=== PATIENT | male | born 1975 | race Caucasian/White ===

== ENCOUNTER 2018-07-14 23:19 | Emergency (ER) | payer MEDICAID, MEDICARE ==
[2018-07-14 23:55] VITALS: BP 143/99
--- NOTE | 2018-07-14 23:58 | EDM.PDOC ---
ED HPI GENERAL MEDICAL PROBLEM - General Chief Complaint: ENT Problem Stated Complaint: INFECTION Time Seen by Provider: 07/14/18 23:45 Source of Information: Reports: Patient History Limitations: Reports: No Limitations - History of Present Illness INITIAL COMMENTS - FREE TEXT/NARRATIVE: 43-year-old female with a swollen tender area on the left mandible, started penicillin 3 days ago but it's worsening and building comfortable pressure. No fevers or chills. Just as he was registering to be seen, the abscess ruptured and drained and he feels markedly better. Onset: Gradual Improves with: Reports: Other (Marked improvement now that it is draining) dental pain Pain Score (Numeric/FACES): 9 - Related Data Allergies Allergy/AdvReac Type Severity Reaction Status Date / Time No Known Allergies Allergy Verified 07/14/18 23:36 Home Meds: Home Meds Cyclobenzaprine [Flexeril] 10 mg PO DAILY 04/07/16 [History] Gabapentin 600 mg PO ASDIRECTED 04/07/16 [History] Past Medical History Musculoskeletal History: Reports: Back Pain, Chronic, Fracture - Infectious Disease History Infectious Disease History: Reports: Chicken Pox - Past Surgical History Neurological Surgical History: Reports: Discectomy, Spinal Fusion Musculoskeletal Surgical History: Reports: Other (See Below) Other Musculoskeletal Surgeries/Procedures:: reconstrutive surgery on left arm Social & Family History - Tobacco Use Smoking Status *Q: Never Smoker - Caffeine Use Caffeine Use: Reports: Coffee - Recreational Drug Use Recreational Drug Use: No ED ROS ENT - Review of Systems Review Of Systems: See Below Constitutional: Denies: Fever, Chills HEENT: Reports: Dental Pain Respiratory: Denies: Shortness of Breath GI/Abdominal: Denies: Nausea, Vomiting Neurological: Denies: Headache ED EXAM, ENT - Physical Exam Exam: See Below Exam Limited By: No Limitations General Appearance: Alert, No Apparent Distress Mouth/Throat: Other (There is swelling and tenderness along the left mandible, the gingival mucosa and nuchal area is swollen and erythematous with active purulent drainage coming out of the recess area.) Course - Vital Signs Last Recorded V/S: Last Vital Signs Temp 95.2 F L 07/14/18 23:48 Pulse 68 07/14/18 23:48 Resp 16 07/14/18 23:48 BP 143/99 H 07/14/18 23:48 Pulse Ox 97 07/14/18 23:48 - Re-Assessments/Exams Free Text/Narrative Re-Assessment/Exam: 07/14/18 23:57 Encouraged the patient to continue massaging the area with warm compresses, and we will add clindamycin 300 mg 3 times a day for the next 5 days. He needs to recheck with dentistry. Departure - Departure Time of Disposition: 00:06 Disposition: Home, Self-Care 01 Condition: Good Clinical Impression: Dental abscess - Discharge Information Instructions: Dental Abscess, [id number] Referrals: PCP,None [Primary Care Provider] - Forms: ED Department Discharge Care Plan Goals: Continue with penicillin and add clindamycin as directed for the next 5 days. Gentle massage of the area with warm compresses and flushing the mouth with warm water will be beneficial. Recheck with a dentist as soon as possible.
== END 2018-07-15 00:06 | disposition home or self-care (01) ==
LOC: JP.ED 23:19
DX: K04.7 Periapical abscess without sinus (principal); Z79.899 Other long term (current) drug therapy
CPT/HCPCS: 99282

== ENCOUNTER 2020-01-31 11:49 | Emergency (ER) | payer OTHER, MEDICARE ==
--- NOTE | 2020-01-31 12:09 | EDM.PDOC ---
ED HPI GENERAL MEDICAL PROBLEM - General Chief Complaint: Lower Extremity Injury/Pain Stated Complaint: L ANKLE/FOOT INJURY Time Seen by Provider: 01/31/20 12:08 Source of Information: Reports: Patient History Limitations: Reports: No Limitations - History of Present Illness INITIAL COMMENTS - FREE TEXT/NARRATIVE: 44 years old male patient presented to the ER with a chief complaint of left foot injury. Patient jumped from his trailer, 5 foot high, landed on his left heel. Complaining of pain on his left heel and foot. Did not hit his head. No loss of consciousness. Denies any headache or visual changes. Denies any neck pain or back pain. Denies any chest pain or shortness breath. Denies any cough or fever. Denies any abdominal pain diarrhea or constipation. Denies any urinary symptom. Denies any pain or injury anywhere else. Left Foot Pain Score (Numeric/FACES): 9 - Related Data Allergies Allergy/AdvReac Type Severity Reaction Status Date / Time No Known Allergies Allergy Verified 01/31/20 12:02 Home Meds: Home Meds NK [No Known Home Meds] 01/31/20 [History] Past Medical History Musculoskeletal History: Reports: Back Pain, Chronic, Fracture - Infectious Disease History Infectious Disease History: Reports: Chicken Pox - Past Surgical History Neurological Surgical History: Reports: Discectomy, Spinal Fusion Musculoskeletal Surgical History: Reports: Other (See Below) Other Musculoskeletal Surgeries/Procedures:: reconstrutive surgery on left arm Social & Family History - Tobacco Use Smoking Status *Q: Former Smoker Used Tobacco, but Quit: Yes Month/Year Tobacco Last Used: 0 - Caffeine Use Caffeine Use: Reports: Coffee - Recreational Drug Use Recreational Drug Use: No Review of Systems - Review of Systems Review Of Systems: Comprehensive ROS is negative, except as noted in HPI. ED EXAM, GENERAL - Physical Exam Exam: See Below Exam Limited By: No Limitations Nose: Normal Inspection, Normal Mucosa, No Blood Head: Atraumatic, Normocephalic Neck: Normal Inspection, Supple, Non-Tender, Full Range of Motion Respiratory/Chest: No Respiratory Distress, Lungs Clear, Normal Breath Sounds, No Accessory Muscle Use, Chest Non-Tender Cardiovascular: Normal Peripheral Pulses, Regular Rate, Rhythm, No Edema, No Gallop, No JVD, No Murmur, No Rub GI/Abdominal: Normal Bowel Sounds, Soft, Non-Tender, No Organomegaly, No Distention, No Abnormal Bruit, No Mass Back Exam: Normal Inspection (Tenderness on palpation of the left heel. Mild swelling. No deformity. No erythema. Pain limitation of the range of motion. CMS intact. ), Full Range of Motion, NT Course - Vital Signs Last Recorded V/S: Last Vital Signs Temp 36.4 C 01/31/20 11:57 Pulse 71 01/31/20 11:57 Resp 18 01/31/20 11:57 BP 100/70 01/31/20 11:57 Pulse Ox 96 01/31/20 11:57 - Radiology Interpretation Free Text/Narrative:: Patient was seen and examined shortly after arrival. Stable. Refused any pain medication. X-ray reviewed. Departure - Departure Time of Disposition: 14:10 Disposition: Home, Self-Care 01 Condition: Good Clinical Impression: Fracture, calcaneus closed - Discharge Information Instructions: Calcaneal Fracture Repair Surgery, Care After Referrals: PCP,None [Primary Care Provider] - Forms: ED Department Discharge Additional Instructions: rest, Ice, elevation, compression, splint Nonweightbearing Do not drive oral. Machines when taken oxycodone Follow-up with orthopedic in 3 or 4 days Come back for any concern or any worsening symptom Sepsis Event Note (ED) - Evaluation Sepsis Screening Result: No Definite Risk - Focused Exam Vital Signs: Vital Signs Temp Pulse Resp BP Pulse Ox 01/31/20 11:57 36.4 C 71 18 100/70 96 - Assessment/Plan Plan: rest, Ice, elevation, compression, splint Nonweightbearing Do not drive oral. Machines when taken oxycodone Follow-up with orthopedic in 3 or 4 days Come back for any concern or any worsening symptom
[2020-01-31 12:20] VITALS: BP 100/70; PULSE 71
--- NOTE | 2020-01-31 13:19 | CR ---
Ankle Min 3V Lt, Foot Comp Min 3V Lt CLINICAL HISTORY: Ankle pain, injury FINDINGS: The soft tissues are normal. There is a nondisplaced comminuted fracture of the calcaneus. Talus appears intact. IMPRESSION: Fracture the calcaneus Foot Comp Min 3V Lt FINDINGS: There is a nondisplaced comminuted fracture of the calcaneus there is some widening of the subtalar joint anteriorly. IMPRESSION: Comminuted fracture calcaneus
--- NOTE | 2020-01-31 14:21 | CT ---
Lower Extremity wo Cont Lt CLINICAL HISTORY: Calcaneal fracture TECHNIQUE: Multiple thin slice axial images were performed through the left foot. The images were reconstructed in the coronal and sagittal planes. Auto dosage reduction and iterative reconstruction techniques employed. FINDINGS: Patient has a comminuted slightly displaced to fracture of the calcaneus. This extends into the anterior and posterior subtalar joints. This extends into the calcaneocuboid joint. Talus and cuboid are intact. The ankle mortise is anatomic. IMPRESSION: Comminuted slightly displaced fracture of the calcaneus
== END 2020-01-31 14:45 | disposition home or self-care (01) ==
LOC: JP.ED 11:49
DX: S92.002A Unspecified fracture of left calcaneus, initial encounter for closed fracture (principal); Z87.891 Personal history of nicotine dependence; W17.89XA Other fall from one level to another, initial encounter
CPT/HCPCS: 73610-26-LT; 73610-LT; 73630-26-LT; 73630-LT; 73700-26-LT; 73700-LT; 99283; 99284-25